=== PATIENT | male | born 1970 | race Caucasian/White ===

== ENCOUNTER 2018-11-15 08:28 | Observation (INO) | payer BC ==
[~2018-11-15] VITALS: Ht 175.3 cm; Wt 158.8 kg
[~2018-11-15 08:28] MED LIST: ASPIRIN EC81 M1; NOHOMEMEDICATIONS; NORCO 5-325 TA1 EACH PO
[2018-11-15 08:34] VITALS: BP 179/107
[2018-11-15] MEDS ORDERED: ATENOLOL 50MG T50 M1 PO (08:39)
[2018-11-15] MEDS ORDERED: GLIPIZIDE 10 MG10 MG PO (08:39)
[2018-11-15] MEDS ORDERED: COZAAR 25 MG TA25 M1 PO (08:40)
[2018-11-15] MEDS ORDERED: LIPITOR 20 MG T20 M1 PO (08:40)
[2018-11-15] MEDS ORDERED: METFORMIN HCL500 MG PO ×2 (08:40→16:46)
[2018-11-15 08:56] LABS: URINE BILIRUBIN NEGATIVE (Negative); URINE BLOOD 2+ (Negative); URINE CLARITY CLEAR; URINE COLOR YELLOW; URINE GLUCOSE-RANDOM NEGATIVE (Negative); URINE KETONES NEGATIVE (Negative); URINE LEUKOCYTES-REFLEX NEGATIVE (Negative); URINE NITRITE-REFLEX NEGATIVE (Negative); URINE PROTEIN NEGATIVE (Negative); URINE SPECIFIC GRAVITY 1.025 (1.005-1.030); URINE UROBILINOGEN 0.2 E.U./dl (0.2-1.0)
[2018-11-15 09:10] LABS: BACTERIA-REFLEX 1-9 Few /HPF (None Seen); CASTS None Seen /LPF (None Seen); CRYSTALS None Seen /LPF (None Seen); MUCUS None Seen strn/LPF (None Seen); SQUAMOUS 0-3 Few /LPF (0-3); URINE RBC 3-10 Few /HPF (0-2); URINE WBC-REFLEX 0-5 Rare /HPF (0-5)
[2018-11-15 09:39] LABS: HEMATOCRIT 40.6 % (42.0-52.0); MCH 30.4 pg (26.0-34.0); MCHC 34.6 g/dL (28.0-37.0); MCV 87.9 fL (80.0-100.0); MPV 8.1 fl. (7.2-11.1); RBC 4.61 mil/uL (4.50-6.00); RDW-CV 13.9 % (10.5-14.5); WBC 7.6 thou/uL (4.0-11.0)
[2018-11-15 09:56] LABS: CALCIUM 9.2 mg/dL (8.5-10.1); CREATININE 1.5 mg/dL (0.6-1.3); POTASSIUM 4.2 mmol/L (3.5-5.1)
[2018-11-15 10:01] LABS: TOTAL BILIRUBIN 0.9 mg/dL (<0.1-1.0); TOTAL PROTEIN 7.2 g/dL (6.4-8.2)
[2018-11-15 12:07] VITALS: BP 125/80
--- NOTE | 2018-11-15 12:21 | NUR ---
PATIENT CAME TO THE FLOOR FROM THE ER VIA CART IN STABLE CONDITION. VITAL SIGNS STABLE ON ROOM AIR. NO COMPLAINTS OF PAIN AT THIS TIME. IV STARTED BY VASCULAR IN THE ROOM. ROOM ORIENTATION AND ADMISSION ASSESSMENT DONE. QUESTIONS ANSWERED FOR PATIENT AND , WILL CONTIUE TO MONITOR.
[2018-11-15 16:00] VITALS: BP 152/93
[2018-11-15] MEDS ORDERED: GLUCOTROL5 MG PO (16:42)
[2018-11-15] MEDS ORDERED: HYZAAR 100-12.1 EACH PO (16:45)
--- NOTE | 2018-11-15 17:28 | NUR ---
PATIENT HAS BEEN ALERT AND ORIENTED SINCE COMING TO THE FLOOR THIS AFTERNOON. NO COMPLAINTS OF ANY KIND TODAY. VITAL SIGNS STABLE ON ROOM AIR. HAS BEEN AT BEDSIDE TODAY. PATIENT IS UP AD [place] IN ROOM. STRAINING URINE. CALL LIGHT IS IN REACH, WILL CONTINUE TO MONITOR.
[2018-11-15 18:50] VITALS: BP 152/93
[2018-11-15 19:45] VITALS: BP 152/93
== END 2018-11-15 19:45 | disposition home or self-care (01) ==
LOC: M.ERS 08:28 → M.3W 10:55 → M.TBA-ER 10:55 → M.3W 10:55
PROVIDERS: Emergency Medicine Emergency Medical Services; ADMIT Internal Medicine
DX: N13.2 Hydronephrosis with renal and ureteral calculous obstruction (principal); N17.9 Acute kidney failure, unspecified; E86.0 Dehydration; E66.9 Obesity, unspecified; I10 Essential (primary) hypertension; M17.0 Bilateral primary osteoarthritis of knee; R31.9 Hematuria, unspecified; Z86.73 Personal history of transient ischemic attack (TIA), and cerebral infarction without residual deficits; Z79.899 Other long term (current) drug therapy